=== PATIENT | male | born 1975 | race Two or more races ===

== ENCOUNTER → 2020-04-28 10:00 | Outpatient (BNVA) | payer OTHER, MEDICAID, SELFPAY | PROVIDERS: Visit Provider Orthopaedic Surgery | DX: Z76.89 Persons encountering health services in other specified circumstances (principal) ==

== ENCOUNTER 2021-01-10 09:01 | Outpatient (REF) | payer MEDICAID, SELFPAY ==
[2021-01-10 09:31] LABS: MANUAL DIFF FLAG NO
[2021-01-10 09:33] LABS: Basophils Percent Auto 0.4 % (0-2); Eosinophils Absolute Auto 0.4 X10*3/uL (0.0-0.4); Eosinophils Percent Auto 5.8 % (0-4); Hematocrit 47.7 % (42-52); Hemoglobin 15.3 g/dl (14.0-18.0); Imm Gran Abs Auto 0.02 X10*3/uL (0.00-0.03); Imm Gran Pct Auto 0.3 % (0.0-0.4); Lymphocytes Absolute Auto 1.9 X10*3/uL (1.2-4.9); Lymphocytes Percent Auto 27.8 % (20-40); Mean Corpuscular HGB Conc 32.1 g/dl (31.0-36.0); Mean Corpuscular Hemoglobin 30.1 pg (27.0-33.0); Mean Corpuscular Volume 93.7 fL (80-98); Mean Platelet Volume 9.7 fL (9.4-12.4); Monocytes Absolute Auto 0.8 X10*3/uL (0.1-1.2); Monocytes Percent Auto 11.7 % (2-11); Neutrophils Absolute Auto 3.6 X10*3/uL (2.0-8.3); Platelet Count 278 X10*3/uL (160-400); Red Blood Count 5.09 X10*6/uL (4.60-5.80); Red Cell Distribution Width 12.7 % (11.0-16.0); White Blood Count 6.7 X10*3/uL (4.8-10.8)
[2021-01-10 09:42] LABS: Estimated Average Glucose 114 mg/dL; Hemoglobin A1c % 5.6 %
[2021-01-10 09:57] LABS: Alanine Aminotransferase 52 U/L (0-40); Albumin Level 4.2 g/dL (3.5-5.0); Alkaline Phosphatase 50 U/L (39-117); Anion Gap 14 (12-20); Aspartate Amino Transferase 28 U/L (5-37); Bilirubin Direct 0.2 mg/dL (0.0-0.5); Bilirubin Total 0.6 mg/dL (0.0-1.0); Blood Urea Nitrogen 13 mg/dL (9-16); Calcium 9.1 mg/dL (8.4-10.2); Carbon Dioxide 25 mmol/L (22-29); Chloride 107 mmol/L (96-108); Estimated Glomerular Filt Rate > 60; Glucose Random 108 mg/dL (60-115); Potassium 4.5 mmol/L (3.3-5.1); Sodium 141 mmol/L (135-145); Total Protein 6.9 g/dL (6.5-8.0)
[2021-01-10 10:19] LABS: TSH reflex Free T4 0.81 uIU/mL (0.32-4.0); Vitamin D 25-OH Total 25.6 ng/mL (>30)
[2021-01-12 04:09] LABS: Folate 13.5 ng/mL (> or = 4.0); Vitamin B12 170 pg/mL (200-900)
== END 2021-01-10 09:02 | disposition home or self-care (01) ==
LOC: HO.LAB 09:01
PROVIDERS: PCP Registered Nurse; Visit Provider Registered Nurse
DX: Z00.00 Encounter for general adult medical examination without abnormal findings (principal); E78.9 Disorder of lipoprotein metabolism, unspecified; R73.01 Impaired fasting glucose; F17.210 Nicotine dependence, cigarettes, uncomplicated
CPT/HCPCS: 36415; 80053; 80076; 82248; 82306; 82607; 82746; 83036; 84443; 85025

== ENCOUNTER 2022-12-15 16:04 | Emergency (ER) | payer OTHER, MEDICAID, SELFPAY ==
--- NOTE | ~2022-12-15 | XR_ITS ---
EXAMINATION: XR RIBS, RIGHT CLINICAL INFORMATION: Fall, trauma, right posterior rib pain. COMPARISON: Chest radiographs 07/08/2019. TECHNIQUE: Frontal view chest and 3 views right ribs are obtained for a total of 4 views. FINDINGS: Suspect nondisplaced fracture right posterior 11th rib on one of the rib films. This may be correlated with patient's symptoms and clinical exam. Remainder of the bony structures appear intact. The lungs are clear. There is no pneumothorax or pleural reaction, airspace consolidation, or effusion. No subcutaneous emphysema. The costophrenic sulci are well-defined. The heart is normal in size. The hilar and mediastinal contours are unremarkable. XR/XR ribs RT min 3V w CXR1V IMPRESSION: - Suspect nondisplaced fracture right posterior 11th rib. This may be correlated with patient's symptoms and clinical exam. - Lungs clear. No pneumothorax, infiltrate, or effusion.
[2022-12-15 16:12] VITALS: BP 122/57; PULSE 82; RESP 18; TEMP 37.2; O2SAT 100; BMI 23.3
--- NOTE | 2022-12-15 16:13 | ED.FALL ---
HPI - Fall General Chief Complaint: Fall Stated Complaint: Fell, rib pain Time Seen by Provider: 12/15/22 18:05 Source: patient, RN notes reviewed and old records reviewed Mode of arrival: ambulatory History of Present Illness HPI Narrative: 47-year-old male with no significant past medical history presenting to the ED complaining of posterior right-sided rib pain s/p mechanical slip and fall down 4 steps a little over 1 week ago. Admits tears were wet, slipped and fell, denies symptoms prior to fall, head trauma or LOC. Denies taking anticoagulation. Reports pain worse with breathing, sneezing, and palpation. Has been taking Tylenol without relief. Denies abdominal pain, nausea/vomiting, fever, hematuria MD complaint: fall Onset (ago): week(s) Related Data Previous Rx's Medication Instructions Recorded ketorolac 10 mg tablet 10 mg PO TID PRN pain 5 days #15 12/15/22 tabs lidocaine 5 % topical patch 1 patch topical DAILY PRN pain #30 12/15/22 (Lidoderm) ea oxycodone-acetaminophen 5 mg-325 1 tab PO Q8H PRN pain (scale score 12/15/22 mg tablet (Percocet) 7-10) 3 days #9 tabs Allergies Allergy/AdvReac Type Severity Reaction Status Date / Time No Known Allergies Allergy Verified 04/28/20 10:07 [No Known Allergies*] Review of Systems Review of Systems: Constitutional: No Fever, No Chills ENT/Mouth: No Ear Pain, No Nasal Congestion, No sore throat, No Rhinorrhea, No Swallowing Difficulty Cardiovascular: + Chest Wall Pain, No SOB Respiratory: No Cough, No Sputum, No Wheezing Gastrointestinal: No Nausea, No Vomiting, No Diarrhea, No Constipation, No Abdominal pain Genitourinary: No Dysuria, No Hematuria, No Urinary Incontinence/retention, No Flank Pain Musculoskeletal: No joint pain, No Myalgias, No Joint Swelling Skin: No Skin Lesions, No rash Neuro: No Weakness, No Numbness, No Paresthesias Yes all other systems are reviewed and are negative Constitutional: Constitutional: Reports as per [facility] Past Medical History Attestation statement: The following information was validated with the patient. Source: old records reviewed Surgical History Status post repair of glenoid labrum (~09/2019) Family History Family History Mother No problems noted. Father No problems noted. Social History Social History Alcohol intake: current Alcohol intake frequency: a few times a week service: No Current occupational status: employed Current occupation: construction-right handed Physical Exam Vital Signs: Vital Signs: Last Vital Signs Temp 97.7 F 12/15/22 18:08 Pulse 74 12/15/22 18:08 Resp 16 12/15/22 18:08 BP 98/65 12/15/22 18:08 Pulse Ox 98 12/15/22 18:08 O2 Del Method Room Air 12/15/22 18:08 BMI result Body Mass Index 23.3 Const: General: cooperative, healthy appearing and no acute distress Orientation/consciousness: patient oriented x3 Limitations: no limitations HEENT: Head: Yes normal to inspection and Yes atraumatic Ears: hearing grossly normal bilaterally General nose exam: Normal external nose present Face and sinus: Yes normal facial exam Eyes: General: appearance normal, both eyes and all related structures EOM: EOMs intact bilaterally Neck: Neck: Yes normal visual inspection and Yes no meningeal signs Chest: Other: + right posterior lateral rib tenderness to palpation reproducing subjective complaint. No appreciable deformity, ecchymosis or erythema. No crepitus. No flail chest. Chest palpation & inspection: normal inspection of the chest, no crepitus and tenderness Resp: Effort & Inspection: normal respiratory effort and no respiratory distress Auscultation: clear to auscultation bilaterally, no rales and no wheezes Cardio: Rate: regular rate Heart sounds: S1 normal heart sound present and S2 normal heart sound present GI: Inspection: Yes normal to inspection Palpation (GI): Soft to palpation, nontender, no guarding and not rigid Back/Spine/Pelvis: Other: No midline cervical/thoracic/lumbar spinous tenderness/step-off or deformity Skin: Rashes: no rashes Wounds: no wounds Neuro: General: patient oriented x3, tone normal and no meningeal signs Gait exam (Neuro): Normal gait present Extrem: General: Yes normal to inspection Course Course Course Narrative: RME - 47 yo nigerian speaking male presents to the ER for evaluation of right posterior rib pain s/p fall down 4 stairs 1.5 weeks ago. No head strike or LOC. No hematuria or abdominal pain. No improvement with tylenol. Plan: rib x-rays XR ribs RT min 3V w CXR1V IMPRESSION: - Suspect nondisplaced fracture right posterior 11th rib. This may be correlated with patient's symptoms and clinical exam. ? - Lungs clear. No pneumothorax, infiltrate, or effusion. >Results discussed with patient including worrisome signs and symptoms and strict return precautions, and when to return to the emergency department. They verbalized understanding and feel safe for discharge at this time. Medical Decision Making Medical Decision Making [facility] Narrative: 47-year-old male with no significant past medical history presenting to the ED complaining of posterior right-sided rib pain s/p mechanical slip and fall down 4 steps a little over 1 week ago. On exam vital signs stable, NAD, nontoxic appearing, physical exam as noted above with reproducible right posterior rib tenderness. No deformity/flail chest or crepitus. Abdomen soft/nontender. No midline spinous tenderness. Concern for rib fracture versus contusion. Low suspicion for intra-abdominal injury/laceration or bleeding. Low suspicion for pyelo/renal stone Plan: Rib x-ray, pain control Please refer to course for remaining clinical decision making, interpretation of labs/imaging results, and discussions with consultants and/or family members. Differential Diagnosis Differential Diagnoses: The differential diagnosis associated with the presentation includes As above Admission/Observation Consideration of admission/observation: Escalation of care including admission/observation considered Lab Data [facility] Lab Attestation statement: I reviewed the patient's lab results. Radiology Impression Discussion of test interpretation with radiology: I have reviewed the radiologist's reading. External Record Review External record reviewed: Inpatient record, Office record, Outpatient record, Prior outpatient labs, Prior outpatient radiology, Primary care record and Outside ED record Tests considered The following testing was considered but not selected: As above Discharge Plan Discharge Clinical Impression: Rib fracture Patient Disposition: Home, Self-Care Instructions: Rib Fracture (ED) Additional Instructions: Your x-ray shows a fracture of her right posterior 11th rib Please use incentive spirometer at home. It is important for you to take deep breaths to lower your risk of developing pneumonia Toradol as an anti-inflammatory/pain medication, take with food. Do not take both Toradol and Motrin or ibuprofen as these are similar medications Lidoderm patches or numbing patches apply to painful area Percocet is an opiate pain medication, take only when pain is severe for the next 3 days Follow-up with your doctor If symptoms persist or worsen, pain becomes unbearable, if shortness of breath or fever return to the ED Mariee radiograf?a muestra marilyn fractura de mariee 11? gallito posterior derecha Utilice un espir?metro de incentivo en casa. Es importante que respire profundamente para reducir el riesgo de desarrollar neumon?a. Toradol jeremy medicamento antiinflamatorio/analg?sico, t?hunter con alimentos. No tome Toradol y Motrin o ibuprofeno ya que estos son medicamentos similares. Se aplican parches de lidodermo o parches anest?sicos en el ?medhat dolorida Percocet es un analg?sico opi?net web developer, t?hunter solo cuando el dolor sea intenso jagjit los pr?ximos 3 d?as. Seguimiento con mariee m?dico Si los s?ntomas persisten o empeoran, el dolor se vuelve insoportable, si la dificultad para respirar o la fiebre regresan al servicio de urgencias. Prescriptions: New ketorolac 10 mg tablet 10 mg PO TID PRN (Reason: pain) 5 Days Qty: 15 0RF lidocaine [Lidoderm] 5 % adhesive patch,medicated 1 patch topical DAILY MDD remove after 12 hours PRN (Reason: pain) Qty: 30 0RF Rx Instructions: leave on most painful area for up to 12 hrs oxycodone-acetaminophen [Percocet] 5-325 mg tablet 1 tab PO Q8H PRN (Reason: pain (scale score 7-10)) 3 Days Qty: 9 0RF Rx Instructions: Partial Fill upon patient request. Referrals: Physician,Unknown J [Primary Care Provider] - 5 days Print Language: Mongolian
[2022-12-15 18:08] VITALS: BP 98/65; PULSE 74; RESP 16; TEMP 36.5; O2SAT 98
[2022-12-15] MEDS: Ketorolac Tromethamine 30 MG/ML VIAL IM (18:39)
[2022-12-15] MEDS: Lidocaine 4 % Patch ADH..PATCH 1 PATCH TRANSDERMA (18:40)
[2022-12-15 19:05] VITALS: BP 118/83; PULSE 65; RESP 18; O2SAT 99
== END 2022-12-15 19:07 | disposition home or self-care (01) ==
LOC: HO.ED 18:46
PROVIDERS: Emergency Provider Emergency Medicine
DX: S22.31XA Fracture of one rib, right side, initial encounter for closed fracture (principal); W10.9XXA Fall (on) (from) unspecified stairs and steps, initial encounter; Y93.9 Activity, unspecified; Y92.9 Unspecified place or not applicable; Y99.9 Unspecified external cause status
CPT/HCPCS: 71101; 96372; 99284; J1885

== ENCOUNTER 2023-01-17 05:44 | Emergency (ER) | payer OTHER, MEDICAID, SELFPAY ==
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
[2023-01-17 05:54] VITALS: BP 103/61; PULSE 99; RESP 18; TEMP 36.7; O2SAT 96; BMI 23.6
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
[2023-01-17] MEDS: Acetaminophen 325 MG TABLET 650 MG PO (08:04)
[2023-01-17] MEDS: Ibuprofen 600 MG TABLET PO (08:04)
== END 2023-01-17 08:55 | disposition home or self-care (01) ==
PROVIDERS: Emergency Provider Emergency Medicine
DX: S39.012A Strain of muscle, fascia and tendon of lower back, initial encounter (principal); V03.00XA Pedestrian on foot injured in collision with car, pick-up truck or van in nontraffic accident, initial encounter; R07.81 Pleurodynia; Y93.89 Activity, other specified; Y92.414 Local residential or business street as the place of occurrence of the external cause; Y99.9 Unspecified external cause status
CPT/HCPCS: 71101; 72100; 99283

== ENCOUNTER 2024-01-27 05:35 | Emergency (ER) | payer OTHER, SELFPAY ==
--- NOTE | ~2024-01-27 | XR_ITS ---
EXAMINATION: XR HIP, RIGHT CLINICAL INFORMATION: Right hip pain. COMPARISON: None available. TECHNIQUE: Two views of the right hip. FINDINGS: Alignment is anatomic. Hip joint space is maintained. No displaced fracture or dislocation. Soft tissues are unremarkable. XR/XR hip RT min 2V IMPRESSION: No acute abnormality.
[2024-01-27 05:46] VITALS: BP 116/65; PULSE 70; RESP 18; TEMP 36.7; O2SAT 99; BMI 23.7
--- NOTE | 2024-01-27 07:00 | ED_ITS ---
HPI - Extremity Problem General Chief complaint: Extremity Problem Stated complaint: right leg pain Time Seen by Provider: 01/27/24 06:55 Source: patient Mode of arrival: ambulatory Limitations: no limitations History of Present Illness ED Provider: KO SCHWAB Narrative: 48 yo male with no sig PMH here with c/o atraumatic R hip and thigh pain woke up yesterday with painful R hip does not inject IV drugs, no tick bites, no known trauma. No rash. States he had to leave work it was so painful. MD Complaint: joint pain Onset (ago): day(s) (yesterday ) Pain Consistency: constant Location: right and lower extremity Quality: aching Radiation: none Relieving factors: nothing Exacerbating factors: range of motion, weight bearing and walking Associated symptoms: denies other symptoms Related Data Previous Rx's ?Medication ?Instructions ?Recorded ketorolac 10 mg tablet 10 mg PO TID PRN pain 5 days #15 12/15/22 tabs lidocaine 5 % topical patch 1 patch topical DAILY PRN pain #30 12/15/22 (Lidoderm) ea oxycodone-acetaminophen 5 mg-325 1 tab PO Q8H PRN pain (scale score 12/15/22 mg tablet (Percocet) 7-10) 3 days #9 tabs cyclobenzaprine 5 mg tablet 5 mg PO TID PRN muscle spasm #12 01/17/23 tabs lidocaine 5 % topical patch 1 patch topical DAILY #15 ea 01/17/23 cyclobenzaprine 10 mg tablet 10 mg PO TID PRN muscle spasm #20 01/27/24 tabs ibuprofen 600 mg tablet 600 mg PO Q6H PRN pain #30 tabs 01/27/24 prednisone 20 mg tablet 20 mg PO DAILY 4 days #4 tabs 01/27/24 Allergies Allergy/AdvReac Type Severity Reaction Status Date / Time No Known Allergies Allergy Verified 01/27/24 05:47 [No Known Allergies*] Review of Systems Review of Systems: Constitutional : No Fever, No Chills ENT/Mouth : No Ear Pain, No Hoarseness, No sore throat Eyes: No Eye Pain, No Swelling, No Redness, No Foreign Body Cardiovascular : No Chest Pain, No SOB Respiratory : No Cough, No Dyspnea Gastrointestinal : No Nausea, No Vomiting, No Diarrhea, No abdominal Pain Genitourinary : No Dysuria, No Hematuria Musculoskeletal : positive joint pain, No Myalgias, No Joint Swelling Skin : No Skin lacerations, No rash Neuro : No Weakness, No Numbness, No Loss of Consciousness, No Dizziness, No Headache Psych : No Anxiety/Panic, No Depression All other systems reviewed and are negative [facility] Past Medical History Attestation statement: The following information was validated with the patient. Source: old records reviewed Medical History Injury of glenoid labrum Surgical History Status post repair of glenoid labrum (~09/2019) Family History Family History Mother No problems noted. Father No problems noted. Social History Social History Alcohol intake: never Advance Directives: No Advance Directives Information Provided: No Do you have a plan to hurt others: No Plan service: No Current occupational status: employed Current occupation: construction-right handed Physical Exam Vital Signs: Vital Signs: Last Vital Signs Temp 98.1 F 01/27/24 05:46 Pulse 70 01/27/24 05:46 Resp 18 01/27/24 05:46 BP 116/65 01/27/24 05:46 Pulse Ox 99 01/27/24 05:46 O2 Del Method Room Air 01/27/24 05:46 BMI result Body Mass Index 23.7 Appearance: Alert. Oriented X3. No acute distress. Eyes: Pupils equal, round and reactive to light. ENT: Pharynx normal. Neck: Normal inspection. Neck supple. CVS: Normal heart rate and rhythm. Pulses normal. Respiratory: No respiratory distress. Breath sounds normal. Abdomen: Soft and nontender. Skin: Skin warm and dry. Normal skin color. Normal skin turgor. Extremities: No lower extremity edema. R hip no swelling, rash, distal NV intact Neuro: Oriented X 3. No motor deficit. No sensory deficit. Medications Administered Discontinued Medications Generic Name Dose Route Start Last Admin Trade Name Freq PRN Reason Stop Dose Admin Oxycodone HCl 10 mg 01/27/24 07:17 01/27/24 07:29 Oxycodone Hcl Immed Release 5 Mg Tablet PO 01/27/24 07:18 10 mg ONCE ONE Administration Medical Decision Making Medical Decision Making MDM Narrative: 48 yo male with no sig PMH here with c/o R hip pain without signs of trauma or rash. No fevers he is NV intact at this time will obtain xray and PO pain control. Possible strain, sprain, fracture. Denies tick bites, IVDA. No signs of infection on exam Differential Diagnosis Differential Diagnoses: The differential diagnosis associated with the presentation includes Admission/Observation Consideration of admission/observation: Escalation of care including admission/observation considered Independent Interpretation I performed an independent interpretation of an: Plain X-Ray (normal ) Radiology Impression Discussion of test interpretation with radiology: I have reviewed the radiologist's reading. External Record Review External record reviewed: Outpatient record Prescription Management I considered prescription management with: Pain Medication and Other Discharge Plan Discharge Clinical Impression: Acute hip pain Patient Disposition: Home, Self-Care Instructions: Arthralgia (ED), Hip Pain (ED) Additional Instructions: return for fevers, numbness, weakness, worsening pain, rash or any other concerns follow up with your doctor if not better by Tuesday Prescriptions: New cyclobenzaprine 10 mg tablet 10 mg PO TID PRN (Reason: muscle spasm) Qty: 20 0RF prednisone 20 mg tablet 20 mg PO DAILY 4 Days Qty: 4 0RF ibuprofen 600 mg tablet 600 mg PO Q6H PRN (Reason: pain) Qty: 30 0RF No Action cyclobenzaprine 5 mg tablet 5 mg PO TID PRN (Reason: muscle spasm) Qty: 12 0RF lidocaine 5 % adhesive patch,medicated 1 patch topical DAILY Qty: 15 0RF Rx Instructions: leave on most painful area for up to 12 hrs ketorolac 10 mg tablet 10 mg PO TID PRN (Reason: pain) 5 Days Qty: 15 0RF lidocaine [Lidoderm] 5 % adhesive patch,medicated 1 patch topical DAILY MDD remove after 12 hours PRN (Reason: pain) Qty: 30 0RF Rx Instructions: leave on most painful area for up to 12 hrs oxycodone-acetaminophen [Percocet] 5-325 mg tablet 1 tab PO Q8H PRN (Reason: pain (scale score 7-10)) 3 Days Qty: 9 0RF Rx Instructions: Partial Fill upon patient request. Stand Alone Forms: Work/School Release Print Language: Libyan
[2024-01-27] MEDS: oxyCODONE HCl Immed Release 5 MG TABLET 10 MG PO (07:29)
[2024-01-27 09:04] VITALS: BP 00/00; PULSE 0; RESP 0; TEMP -17.7; TEMP 0; O2SAT 0
== END 2024-01-27 09:05 | disposition home or self-care (01) ==
PROVIDERS: Emergency Provider Emergency Medicine
DX: M25.551 Pain in right hip (principal)
CPT/HCPCS: 73502; 99283

== ENCOUNTER 2024-04-25 09:33 | Outpatient (REF) | payer OTHER, SELFPAY ==
--- NOTE | ~2024-04-25 | XR_ITS ---
EXAMINATION: XR FINGER, RIGHT CLINICAL INFORMATION: Thumb pain and swelling COMPARISON: None available. TECHNIQUE: Three views of the right thumb. 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 Small chronic ossification at the dorsal/radial aspect of the 1st MCP joint. There is a chronic, healed fracture of the distal 5th metacarpal. No acute osseous abnormality. 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 No acute osseous abnormality. Chronic, healed 5th metacarpal fracture. Electronically signed by: Alexey Vaz MD 04/25/2024 09:24 PM EDT
[2024-04-25 13:16] LABS: Uric Acid 4.7 mg/dL (3.4-7.0)
[2024-04-27 03:13] LABS: Lyme Abs Screen <0.90 index
== END 2024-04-25 09:34 | disposition home or self-care (01) ==
LOC: HO.HHCL 09:33
PROVIDERS: Visit Provider Emergency Medicine
DX: M79.644 Pain in right finger(s) (principal); M79.89 Other specified soft tissue disorders
CPT/HCPCS: 36415; 73140; 84550; 86617; 86618

== ENCOUNTER 2025-03-18 09:31 | Outpatient (REF) | payer OTHER, SELFPAY ==
--- NOTE | ~2025-03-18 | XR_ITS ---
EXAMINATION: XR THORACIC SPINE CLINICAL INFORMATION: 1 week h/o atraumatic right horacic and lumbar pain. COMPARISON: Correlated to chest x-ray dated July 08, 2019. TECHNIQUE: AP and lateral views FINDINGS: Mild multilevel endplate sclerosis and small marginal osteophyte formation at multiple levels. No acute cortical disruption or gross malalignment. Mild S-shaped curvature of the mid thoracic spine. No lytic or blastic lesions. XR/XR thoracic spine 3V IMPRESSION: Multilevel spondylosis without acute fracture or gross listhesis. Electronically signed by: Miguel Lauren MD 03/18/2025 10:08 AM EDT
--- NOTE | ~2025-03-18 | XR_ITS ---
EXAMINATION: XR LUMBOSACRAL SPINE WITH OBLIQUES CLINICAL INFORMATION: 1 week h/o atraumatic right horacic and lumbar pain. COMPARISON: January 17, 2023 TECHNIQUE: AP oblique and lateral views. FINDINGS: Syndesmophyte formation and marginal osteophyte formation L3-4 and L4-5 levels. Mild multilevel endplate sclerosis. No acute cortical disruption or malalignment. No lytic or blastic lesions. XR/XR lumbar spine 4V min IMPRESSION: Mild multilevel spondylosis pronounced at L3-4 without acute fracture or listhesis. Electronically signed by: Miguel Lauren MD 03/18/2025 10:06 AM EDT
--- OUTSIDE RECORDS SUMMARY | 2025-03-18 09:00 | XMS_ITS | Encounter Summary ---
Author Organization [employer] Address [address] [place] [address] [address] [address] Care Team Providers Care Home Economist Consumer Service Name Role Phone Eusebia Toney AUTOMATION ANALYST Primary Care Provider [phone] Reason for Referral * Consultation (Urgent) - Pending Review Specialty Diagnoses / Procedures Referred By Contangela t Referred To Contact Pain Medicine Diagnoses Acute right-sided thoracic back pain Acute right-sided low back pain with right-sided sciatica Anthony Cox MD [address] [place] [address] Phone: tel: fax: Referral ID Status Reason Start Date Expiration Date Visits Requested Visits Authorized [id number] Pending Review Specialty Services Required 03/18/2025 03/18/2026 1 1 Reason for Visit * Reason Comments Back Pain Leg Pain Encounter Details Date Type Department Care Team (Late st Contact Info) Description 03/18/2025 9:00 AM EDT Office Visit [facility] [address] [place] [address] Acute right-sided thoracic back pain (Primary Dx); Acute right-sided low back pain with right-sided sciatica; Elevated blood pressure reading in office without diagnosis of hypertension Social History Tobacco Use Types Packs/Day Years Used Date Smoking Tobacco: Every Day Cigarettes Passive Smoke Exposure: Never Smokeless Tobacco: Never Alcohol Use Standard Drinks/Week Comments Never 0 (1 standard drink = 0.6 oz pur e alcohol) Housing Stability Answer Date Recorded What is your housing situation today? I have ravinder nieto 05/09/[address] you li ve. Do you have problems with any of the following? None of the above 05/09/2023 Food Insecurity Answer Date Recorded Within the past 12 months, y ou worried that your food would run out before you got money to buy more: Never True 05/09/2023 Within the past 12 months,th e food you bought just didn't last and you didn't have enough money to get more: Never True 12/2022 Transportation Answer Date Recorded In the past 12 months, has l ack of transportation kept you from medical appts, meetings, work or from getting things needed for daily living? No 05/09/2023 Utilities Answer Date Recorded In the past 12 months, has t he electric, gas, oil or water company threatened to shut off services in your home? No 05/09/2023 Sex and Gender Information Value Date Recorded Sex Assigned at Male 05/03/2022 10:33 AM EDT Legal Sex Male 10:33 AM EDT Gender Identity Male 05/03/2022 10:33 AM EDT Sexual Orientation Choose not to disclose 2021 10:33 AM EDT documented as of this encounter Last Filed Vital Signs Vital Sign Reading Time Taken Comments Blood Pressure 145/87 03/18/2025 8:46 AM EDT Pulse 77 03/18/2025 8:46 AM EDT Temperature 37 C (98.6 F) 03/18/2025 8:46 AM EDT Respiratory Rate 20 03/18/2025 8:46 AM EDT Oxygen Saturation 98% 03/18/2025 8:46 AM EDT Inhaled Oxygen Concentration - - Weight 73.9 kg (163 lb) 03/18/2025 8:46 AM EDT Height - - Body Mass Index 21.84 09/22/2022 10:08 AM EDT documented in this encounter Plan of Treatment Scheduled Referrals Name Type Priority Associated Diagnoses Orde r Schedule Referral to Pain Medicine Outpatient Referral Urgent Acute right-sided thoracic back pain Acute right-sided low back pain with right-sided sciatica Expected: 03/18/2025 (Approximate), Expires: 03/18/2026 documented as of this encounter Procedures Procedure Name Priority Date/Time Associated Diagnosis Comments XR THORACIC SPINE 3 VIEWS Routine 03/18/2025 9:53 AM EDT Acute right-sided thoracic back pain Acute right-sided low back pain with right-sided sciatica XR LUMBAR SPINE COMPLETE 4+ VIEWS Routine 03/18/2025 9:50 AM EDT Acute right-sided thoracic back pain Acute right-sided low back pain with right-sided sciatica POCT URINALYSIS DIPSTICK Routine 03/18/2025 9:30 AM EDT Acute right-sided thoracic back pain documented in this encounter Results * XR Thoracic Spine 3 Views (03/18/2025 9:53 AM EDT) Anatomical Region Laterality Modality Spine, T-spine Radiographic Ruma ging 03/18/2025 9:53 AM EDT Narrative 03/18/2025 10:11 [place] [address] XRay Report Signed Patient: Mike Schaefer MR#: [id number] : 1975 Acct:[id number] Age/Sex: 50 / M ADM Date: 03/18/25 Loc: HO.HHCX Attending Dr: Anthony Cox MD Ordering Physician: ANTHONY COX MD Date of Service: 03/18/25 Procedure(s): XR thoracic spine 3V Accession Number(s): [id number] cc: ANTHONY COX MD Reason for Exam: 1 week h/o atraumatic right horacic and lumbar pain. EXAMINATION: XR THORACIC SPINE CLINICAL INFORMATION: 1 week h/o atraumatic right horacic and lumbar pain. COMPARISON: Correlated to chest x-ray dated July 08, 2019. TECHNIQUE: AP and lateral views FINDINGS: Mild multilevel endplate sclerosis and small marginal osteophyte formation at multiple levels. No acute cortical disruption or gross malalignment. Mild S-shaped curvature of the mid thoracic spine. No lytic or blastic lesions. XR/XR thoracic spine 3V IMPRESSION: Multilevel spondylosis without acute fracture or gross listhesis. Electronically signed by: Miguel Lauren MD 03/18/2025 10:08 AM EDT RP Dictated By: Miguel Alvarenga MD Signed By: <Electronically signed by Miguel Yoon MD in OV> 03/18/25 1008 DD/ 2 TD/TT: 03/18/25 1002 Behavioral Health Worker: Procedure Note Donotuseinterpreter, Image - 03/18/[address] [address] XRay Report Signed Patient: Mike Schaefer MR#: [id number] : 1975Acct:[id number] Age/Sex: 50 / MADM Date: 03/18/25 Loc: HO.HHCX Attending Dr: Anthony Cox MD Ordering Physician: ANTHONY COX MD Date of Service: 03/18/25 Procedure(s): XR thoracic spine 3V Accession Number(s): [id number] cc: ANTHONY COX MD Reason for Exam: 1 week h/o atraumatic right horacic and lumbar pain. EXAMINATION: XR THORACIC SPINE CLINICAL INFORMATION: 1 week h/o atraumatic right horacic and lumbar pain. COMPARISON: Correlated to chest x-ray dated July 08, 2019. TECHNIQUE: AP and lateral views FINDINGS: Mild multilevel endplate sclerosis and small marginal osteophyte formation at multiple levels. No acute cortical disruption or gross malalignment. Mild S-shaped curvature of the mid thoracic spine. No lytic or blastic lesions. XR/XR thoracic spine 3V IMPRESSION: Multilevel spondylosis without acute fracture or gross listhesis. Electronically signed by: Miguel Lauren MD 03/18/2025 10:08 AM EDT RP Dictated By: Miguel Alvarenga MD Signed By: <Electronically signed by Miguel Yoon MDin OV> 03/18/25 1008 DD/ 2 TD/TT: 03/18/25 1002 Behavioral Health Worker: Anthony Cox MD IMG XR PROCEDURES Edited Result - Final * XR Lumbar Spine Complete 4+ Views (03/18/2025 9:50 AM EDT) Anatomical Region Laterality Modality Spine, L-spine Radiographic Ruma ging 03/18/2025 9:50 AM EDT Narrative 03/18/2025 10:09 AM EDT [address] [address] XRay Report Signed Patient: Mike Schaefer MR#: [id number] : 1975 Acct:[id number] Age/Sex: 50 / M ADM Date: 03/18/25 Loc: HO.HHCX Attending Dr: Anthony Cox MD Ordering Physician: ANTHONY COX MD Date of Service: 03/18/25 Procedure(s): XR lumbar spine 4V min Accession Number(s): [id number] cc: ANTHONY COX MD Reason for Exam: 1 week h/o atraumatic right horacic and lumbar pain. EXAMINATION: XR LUMBOSACRAL SPINE WITH OBLIQUES CLINICAL INFORMATION: 1 week h/o atraumatic right horacic and lumbar pain. COMPARISON: January 17, 2023 TECHNIQUE: AP oblique and lateral views. FINDINGS: Syndesmophyte formation and marginal osteophyte formation L3-4 and L4-5 levels. Mild multilevel endplate sclerosis. No acute cortical disruption or malalignment. No lytic or blastic lesions. XR/XR lumbar spine 4V min IMPRESSION: Mild multilevel spondylosis pronounced at L3-4 without acute fracture or listhesis. Electronically signed by: Miguel Lauren MD 03/18/2025 10:06 AM EDT Dictated By: Miguel Alvarenga MD Signed By: <Electronically signed by Miguel Yoon MD in OV> 03/18/25 1006 DD/ 0950 TD/TT: 03/18/25 1002 Behavioral Health Worker: Procedure Note Donotuseinterpreter, Image - 03/18/[address] [address] XRay Report Signed Patient: Mike Schaefer MR#: [id number] : 1975Acct:[id number] Age/Sex: 50 / MADM Date: 03/18/25 Loc: HO.HHCX Attending Dr: Anthony Cox MD Ordering Physician: ANTHONY COX MD Date of Service: 03/18/25 Procedure(s): XR lumbar spine 4V min Accession Number(s): [id number] cc: ANTHONY COX MD Reason for Exam: 1 week h/o atraumatic right horacic and lumbar pain. EXAMINATION: XR LUMBOSACRAL SPINE WITH OBLIQUES CLINICAL INFORMATION: 1 week h/o atraumatic right horacic and lumbar pain. COMPARISON: January 17, 2023 TECHNIQUE: AP oblique and lateral views. FINDINGS: Syndesmophyte formation and marginal osteophyte formation L3-4 and L4-5 levels. Mild multilevel endplate sclerosis. No acute cortical disruption or malalignment. No lytic or blastic lesions. XR/XR lumbar spine 4V min IMPRESSION: Mild multilevel spondylosis pronounced at L3-4 without acute fracture or listhesis. Electronically signed by: Miguel Lauren MD 03/18/2025 10:06 AM EDT Dictated By: Miguel Alvarenga MD Signed By: <Electronically signed by Miguel Yoon MDin OV> 03/18/25 1006 DD/ 0950 TD/TT: 03/18/25 1002 Behavioral Health Worker: Anthony Cox MD IMG XR PROCEDURES Edited Result - Final * POCT urinalysis dipstick manually resulted (03/18/2025 9:30 AM EDT) Color, UA Yellow Clarity, UA Clear Glucose, UA Negative Bilirubin, UA Negative Ketones, UA Negative Spec Grav, UA 1.020 Blood, UA Negative Negative, None Detected pH, UA 6.5 Protein, UA Negative Urobilinogen, UA 0.2 Leukocytes, UA Negative Negative, Rare, Trace Nitrite, UA Negative Negative, None Detected Urine 03/18/2025 9:30 AM EDT us Anthony Cox MD POINT OF CARE TEST ENTER/EDIT OR DERABLES Final Result documented in this encounter Visit Diagnoses Diagnosis Acute right-sided thoracic back pain- Primary Acute right-sided low back pain with right-sided sciatica Elevated blood pressure reading in office without diagnosis of hypertension documented in this encounter Care Teams Home Economist Consumer Service Relationship Specialty Start Date End Date Eusebia Toney FNP [address] [place] [id number] PCP - General Family Medicine 01/05/22 documented as of this encounter
--- OUTSIDE RECORDS SUMMARY | 2025-03-18 11:28 | XMS_ITS | Encounter Summary ---
Author Organization [employer] Address [address] [place] [address] Care Team Providers Care Mems Integration Engineer Name Role Phone [place] [facility] Primary Care Provider [phone] Reason for Visit * Reason Onset Date Comments returning call 08/30/2022 Encounter Details Date Type Department Care Team ([facility] st Contact Info) Description 08/30/2022 Telephone [facility] [address] [place], [place] [phone] [facility] [address] [place] [address] returning call Social History Tobacco Use Types Packs/Day Years Used Date Smoking Tobacco: Every Day Cigarettes Smokeless Tobacco: Never Sex and Gender Information Value Date Recorded Sex Assigned at Male 05/03/2022 10:33 AM EDT Legal Sex Male 10:33 AM EDT Gender Identity Male 05/03/2022 10:33 AM EDT Sexual Orientation Choose not to disclose 2021 10:33 AM EDT COVID-19 Exposure Response Date Recorded In the last 10 days, have yo u been in contact with someone who was confirmed or suspected to have Coronavirus/COVID-19? No / Unsure 08/24/2022 1:16 PM EST documented as of this encounter Miscellaneous Notes * Telephone Encounter - Gunjan Solorio RN - 08/30/2022 3:02 PM EST TC X2 to pt regarding message below. Pt answered and was informed of normal BW results. states rash is improving but pt is still getting new papules that looks like mosquito bites. would like referral to [facility] as she is concerned that when prednisone is done rash will return. * Telephone Encounter - Claudia Maria Dolores - 08/30/2022 9:42 AM EST Tc from pt returning call . documented in this encounter Plan of Treatment Not on file documented as of this encounter Visit Diagnoses Not on filedocumented in this encounter Care Teams Mems Integration Engineer Relationship Specialty Start Date End Date Eusebia Toney FNP [address] [place] [address] PCP - General Family Medicine 01/05/22 documented as of this encounter
--- OUTSIDE RECORDS SUMMARY | 2025-03-18 11:28 | XMS_ITS | Clinical Summary ---
Author Organization [facility] Address [id number] [place] [id number] Care Team Providers Care Swim Coach Name Role Phone Morgan Young MD Primary Care Provider [phone] Surgical History Surgery Date Site/Laterality Comments OTHER SURGICAL HISTORY PROCEDURE: DENIES PREVIOUS SURGERY Medical History Medical History Date Comments Lung nodule < 6cm on CT 12/30/2016 DX:Lung nodule < 6cm on CT Family History Medical History Relation Name Comments Heart attack Father Heart failure Father Hypertension Father Blindness Neg Hx Cataracts Neg Hx Glaucoma Neg Hx Macular degeneration Neg Hx Strabismus Neg Hx Relation Name Status Comments Father Social History Tobacco Use Types Packs/Day Years Used Date Smoking Tobacco: Every Day Cigarettes Alcohol Use Standard Drinks/Week Comments Yes 5 (1 standard drink = 0.6 oz pur e alcohol) Sex and Gender Information Value Date Recorded Sex Assigned at Not on file Legal Sex Male 5:43 AM EST Gender Identity Not on file Sexual Orientation Not on file Obstetrics History Plan of Treatment Health Maintenance Due Date Last Done Comments Hepatitis B Vaccines (1 of 3 - 19+ 3-dose series) 1993 DTaP,Tdap,and Td Vaccines (2 - Td or Tdap) 07/31/2022 07/31/2012 Pneumococcal Vaccine: 50+ Ye ars (1 of 1 - PCV) 2024 Zoster Vaccines (1 of 2) 2024 Depression Screening 07/04/2024 COVID-19 Vaccine ( - 2023-2 5 season) 2025 Influenza Vaccine (#1) 2025 07/13/2012 HIB Vaccines Aged Out No longer eligi ble based on patient's age to complete this topic HPV Vaccines Aged Out No longer eligi ble based on patient's age to complete this topic Hepatitis A Vaccines Aged Out No long er eligible based on patient's age to complete this topic IPV Vaccines Aged Out No longer eligi ble based on patient's age to complete this topic MMR Vaccines Aged Out No longer eligi ble based on patient's age to complete this topic Meningococcal ACWY Vaccine Aged Out N o longer eligible based on patient's age to complete this topic Meningococcal B Vaccine Aged Out No l onger eligible based on patient's age to complete this topic RSV Immunization Patients Un shay 20 months Aged Out No longer eligible b ased on patient's age to complete this topic Varicella Vaccines Aged Out No longer eligible based on patient's age to complete this topic Care Teams Swim Coach Relationship Specialty Start Date End Date Morgan Young MD [address] [place] [address] PCP - General Internal Medicine 03/05/25
--- OUTSIDE RECORDS SUMMARY | 2025-03-18 11:28 | XMS_ITS | Encounter Summary ---
Author Organization [employer] Address [address] [place] [id number] Care Team Providers Care Comp Field Case Manager Name Role Phone Eusebia Toney Primary Care Provider [phone] Encounter Details Date Type Department Care Team (Latest Contact Info) Description 02/07/2019 Abstract [facility] CONVERSIONS Dental, Provider, DDS Social History Tobacco Use Types Packs/Day Years Used Date Smoking Tobacco: Never Assessed Sex and Gender Information Value Date Recorded Sex Assigned at Male 05/03/2022 10:33 AM EDT Legal Sex Male 10:33 AM EDT Gender Identity Male 05/03/2022 10:33 AM EDT Sexual Orientation Choose not to disclose 2021 10:33 AM EDT documented as of this encounter Plan of Treatment Not on file documented as of this encounter Visit Diagnoses Not on filedocumented in this encounter Care Teams Comp Field Case Manager Relationship Specialty Start Date End Date Eusebia Toney FNP [address] [place] [id number] PCP - General Family Medicine 01/05/22 documented as of this encounter
--- OUTSIDE RECORDS SUMMARY | 2025-03-18 11:28 | XMS_ITS | Encounter Summary ---
Author Organization [employer] Address [address] [facility] [address] [place] [address] Care Team Providers Care Foil Stamp Operator Name Role Phone Eusebia Toney MASON FOREMAN/SUPERINTENDANT Primary Care Provider [phone] Encounter Details Date Type Department Care Team (Latest Contact Info) Description 03/18/2025 Travel Social History Tobacco Use Types Packs/Day Years Used Date Smoking Tobacco: Every Day Cigarettes Passive Smoke Exposure: Never Smokeless Tobacco: Never Alcohol Use Standard Drinks/Week Comments Never 0 (1 standard drink = 0.6 oz pur e alcohol) Housing Stability Answer Date Recorded What is your housing situation today? I have ravinderamira nieto 05/09/[address] you [...] on filedocumented in this encounter Care Teams Foil Stamp Operator Relationship Specialty Start Date End Date Eusebia Toney FNP [address] [place] [address] PCP - General Family Medicine 01/05/22 documented as of this encounter
--- OUTSIDE RECORDS SUMMARY | 2025-03-18 11:28 | XMS_ITS | Clinical Summary ---
Author Organization [employer] Address [address] [place] [address] Care Team Providers Care Customs Entry Clerk Name Role Phone Eusebia Toney SLEEVER Primary Care Provider [phone] Allergies Active Allergy Reactions Criticality Noted Date Comments Acetaminophen Rash Low 03/18/2025 Ibuprofen Rash Low 03/18/2025 Medications calamine-zinc oxide lotionIndicatio ns:Urticaria, acute Apply topically 2 times daily. 118 mL 3 Active cetirizine (ZyrTEC) 10 MG tabletIndicatio ns:Urticaria, acute Take 1 tablet (10 mg) by mouth in the morning. 90 tablet 3 3 Active nicotine (Nicoderm CQ) 21 MG/24HR patch Place 1 patch on the skin 1 (one) time each day at the same time. 42 patch 4 Active nicotine (Nicoderm CQ) 14 MG/24HR patch Place 1 patch on the skin 1 (one) time each day at the same time. 14 patch 4 Active nicotine (Nicoderm CQ) 7 MG/24HR patch Place 1 patch on the skin 1 (one) time each day at the same time. 14 patch 4 Active nicotine polacrilex (Commit) 2 MG lozenge Dissolve 1 lozenge (2 mg) in the mouth if needed for smoking cessation. 100 lozenge 4 Active acetaminophen (Tylenol) 500 MG tablet Take 2 tablets (1,000 mg) by mouth every 6 (six) hours if needed for moderate pain or fever for up to 25 doses. 40 tablet 4 Active Blood Pressure kit 1 each 2 times daily. 1 kit 5 Active tiZANidine (Zanaflex) 2 MG tablet Take 1 tablet (2 mg) by mouth every 8 (eight) hours if needed for muscle spasms. 30 tablet 5 Active Active Problems Problem Noted Date Diagnosed Date Kidney stone 03/18/2025 Tobacco dependence 04/25/2024 Encounters Date Type Department Care Team Description 03/18/2025 9:00 AM EDT Office Visit [facility] [address] [place] [address] Acute right-sided thoracic back pain (Primary Dx); Acute right-sided low back pain with right-sided sciatica; Elevated blood pressure reading in office without diagnosis of hypertension 03/18/2025 Travel 02/11/2025 Telephone [facility] [address] [place] [address] Eusebia Toney FNP No Show 02/08/[address] [address] Eusebia Toney FNP Chart Prep 01/31/2025 Patient Outreach [address] [address] Eusebia Toney FNP Pre-visit Planning ((Unable to reach for PVP screening and or LVM) to be completed in office) from Last 3 Months Social History Tobacco Use Types Packs/Day Years Used Date Smoking Tobacco: Every Day Cigarettes Passive Smoke Exposure: Never Smokeless Tobacco: Never Tobacco Cessation:Ready to Q uit: Not Asked; Counseling Given: Not Answered Alcohol Use Standard Drinks/Week Comments Never 0 [...] not to disclose 2021 10:33 AM EDT Last Filed Vital Signs Vital Sign Reading Time Taken Comments Blood Pressure 145/87 03/18/2025 8:46 AM EDT Pulse 77 03/18/2025 8:46 AM EDT Temperature 37 C (98.6 F) 03/18/2025 8:46 AM EDT Respiratory Rate 20 03/18/2025 8:46 AM EDT Oxygen Saturation 98% 03/18/2025 8:46 AM EDT Inhaled Oxygen Concentration - - Weight 73.9 kg (163 lb) 03/18/2025 8:46 AM EDT Height 184 cm (6' 0.44 ) 09/22/2022 10:08 AM EDT Body Mass Index 21.84 09/22/2022 10:08 AM EDT Plan of Treatment Health Maintenance Due Date Last Done Comments CT Colonography 1974 Colonoscopy 1974 Colorectal Cancer Screening 1974 Depression Screening 1974 FIT DNA/Cologuard 1974 FIT 1974 FOBT 1974 HIV Screening 1974 Lipid Panel 1974 Sigmoidoscopy 1974 Disability Screening 1974 Alcohol/Substance Use Screening 1986 Family Planning (PISQ) 1989 Hepatitis C Screening 1992 Pneumococcal Vaccine: 50+ Years (1 of 2 - PCV) 1993 DTaP/Tdap/Td Vaccines (2 - T d or Tdap) 07/31/2022 07/31/2012 SDOH Screening 12/28/2023 12/27/2022 Zoster Vaccines (1 of 2) 2024 COVID-19 Vaccine (4 - 2024-2 6 season) 2025 07/29/2021, 12/03/2020, 11/04/2020 Influenza Vaccine (#1) 2025 8, 07/13/2012 Tobacco Screening 03/18/2026 03/18/2025 RSV Patients and Patients Aged 60 years or older (1 - 1-dose 75+ series) 2049 Hepatitis B Vaccines Completed 09/06/2018, 05/08/2018, 03/29/2018 HIB Vaccines Aged Out No longer eligi [...] patient's age to complete this topic Meningococcal Vaccine Aged Out No sloane phillip eligible based on patient's age to complete this topic RSV under 20 months Aged Out No longe r eligible based on patient's age to complete this topic Rotavirus Vaccines Aged Out No longer eligible based on patient's age to complete this topic Procedures Procedure Name Priority Date/Time Associated Diagnosis [...] AM EDT Acute right-sided thoracic back pain from Last 3 Months Results * XR Thoracic Spine 3 Views (03/18/2025 9:53 AM EDT) Anatomical Region Laterality Modality Spine, T-spine Radiographic Ruma ging 03/18/2025 9:53 AM EDT Narrative 03/18/2025 10:11 AM EDT [address] [address] XRay Report Signed Patient: Mike Schaefer MR#: [id number] : 1975 Acct:[id number] Age/Sex: 50 / M ADM Date: 03/18/25 Loc: HO.HHCX Attending Dr: Anthony Cox MD Ordering Physician: ANTHONY COX MD Date of Service: 03/18/25 Procedure(s): XR thoracic spine 3V Accession Number(s): [id number] cc: ANTHONY COX MD Reason for Exam: [...] Miguel Lauren MD 03/18/2025 10:08 AM EDT Dictated By: Miguel Alvarenga MD Signed By: <Electronically signed by Miguel Yoon MD in OV> 03/18/25 1008 DD/ 0953 TD/TT: 03/18/25 1002 Resource Management Specialist: Procedure Note Donotuseinterpreter, Image - 03/18/[address] [address] XRay Report Signed Patient: Mike Schaefer MR#: [id number] : 1975Acct:[id number] Age/Sex: 50 / MADM Date: 03/18/25 Loc: ADITHYAKeith Attending Dr: Anthony Cox MD Ordering Physician: ANTHONY COX MD Date of Service: 03/18/25 Procedure(s): XR thoracic spine 3V Accession Number(s): [id number] cc: ANTHONY COX MD Reason for Exam: [...] Miguel Lauren MD 03/18/2025 10:08 AM EDT Dictated By: Miguel Alvarenga MD Signed By: <Electronically signed by Miguel Yoon MDin OV> 03/18/25 1008 DD/ 0953 TD/TT: 03/18/25 1002 Resource Management Specialist: Anthony Cox MD IMG XR PROCEDURES Edited Result - Final * XR Lumbar Spine Complete 4+ Views (03/18/2025 9:50 AM EDT) Anatomical Region Laterality Modality Spine, L-spine Radiographic Ruma ging 03/18/2025 9:50 AM EDT Narrative 03/18/2025 10:09 AM EDT [address] [address] XRay Report Signed Patient: Mike Schaefer MR#: [id number] : 1975 Acct:[id number] Age/Sex: 50 / M ADM Date: 03/18/25 Loc: HOLLIS.HHCX Attending Dr: Anthony Cox MD Ordering Physician: ANTHONY COX MD Date of Service: 03/18/25 Procedure(s): XR lumbar spine 4V min Accession Number(s): [id number] cc: ANTHONY COX MD Reason for Exam: [...] Miguel Lauren MD 03/18/2025 10:06 AM EDT RP Dictated By: Miguel Alvarenga MD Signed By: <Electronically signed by Miguel Yoon MD in OV> 03/18/25 1006 DD/ 0950 TD/TT: 03/18/25 1002 Resource Management Specialist: Procedure Note Donotuseinterpreter, Image - 03/18/[address] [address] XRay Report Signed Patient: Mike Schaefer MR#: [id number] : 1975Acct:[id number] Age/Sex: 50 / MADM Date: 03/18/25 Loc: HO.HHCX Attending Dr: Anthony Cox MD Ordering Physician: ANTHONY COX MD Date of Service: 03/18/25 Procedure(s): XR lumbar spine 4V min Accession Number(s): [id number] cc: ANTHONY COX MD Reason for Exam: [...] Miguel Lauren MD 03/18/2025 10:06 AM EDT RP Dictated By: Miguel Alvarenga MD Signed By: <Electronically signed by Miguel Yoon MDin OV> 03/18/25 1006 DD/ 0950 TD/TT: 03/18/25 1002 Resource Management Specialist: us Anthony Cox MD IMG XR PROCEDURES Edited [...] CARE TEST ENTER/EDIT OR DERABLES Final Result from Last 3 Months Insurance Care Teams Customs Entry Clerk Relationship Specialty Start Date End Date Eusebia Toney FNP [address] [place] [address] PCP - General Family Medicine 01/05/22
--- OUTSIDE RECORDS SUMMARY | 2025-03-18 11:28 | XMS_ITS | Encounter Summary ---
Author Organization [employer] Address [address] [place] [address] Care Team Providers Care Cook'S Assistant Name Role Phone Dawna [facility] Primary Care Provider Reason for Visit * Reason Onset Date Comments Referral 09/07/2022 Encounter Details Date Type Department Care Team ([facility] st Contact Info) Description 09/07/2022 Telephone [facility] [address] [place], [place] [phone] Dawna [facility] [address] [place], [place] [phone] Referral Social History Tobacco Use Types Packs/Day Years [...] encounter Miscellaneous Notes * Telephone Encounter - Noni Freitas - 12/07/2022 12:12 PM EDT Beth Laws. Just seeing this message. Our apologies. I just checked his chart and I see that you sent another referral but it was sent to [facility] again. Please try to right details into the referral order itself so everyone that processes the referral can view it. Unfortunately, that's pretty much all we have. I recently had to call varies offices and they are all full. Pt can call [facility] and ask if they have sooner appts available at their numerous locations if this issue still persist. Thank you. * Telephone Encounter - Anandverito Piyush Galarza - 09/07/2022 10:54 AM EST Tc from pt Spouse requesting for referral for the allergy to sent somewhere else other then [facility]. Spouse states that [facility] is trying to give them an appt for June. Please contact pt spouse at [phone] Faroese Speaker documented in this encounter Plan of Treatment Not on file documented as of this encounter Visit Diagnoses Not on filedocumented in this encounter Care Teams Cook'S Assistant Relationship Specialty Start Date End Date Eusebia Toney FNP [address] [place] [address] PCP - General Family Medicine 01/05/22 documented as of this encounter
== END 2025-03-18 09:32 | disposition home or self-care (01) ==
LOC: HO.HHCX 09:31
PROVIDERS: Visit Provider Emergency Medicine
DX: M54.6 Pain in thoracic spine (principal); M54.41 Lumbago with sciatica, right side
CPT/HCPCS: 72072; 72110

== ENCOUNTER → 2025-03-18 09:31 | Outpatient (BNV) | payer OTHER, SELFPAY | PROVIDERS: Visit Provider Radiology Diagnostic Radiology | DX: M54.50 Low back pain, unspecified (principal); M47.814 Spondylosis without myelopathy or radiculopathy, thoracic region | CPT/HCPCS: 72072; 72110 ==